=== PATIENT | female | born 1995 | race Caucasian/White ===

== ENCOUNTER 2021-05-05 20:51 | Emergency (ER) | payer BC ==
[2021-05-05 21:06] VITALS: BMI 33.1
[2021-05-06 01:50] LABS: BASO % 0.7 % (0-2.0); EOS % 2.4 % (0-4.5); HEMATOCRIT 36.1 % (32.4-45.2); HEMOGLOBIN 11.9 GM/dL (10.7-15.3); MCH 26.4 pg (25.7-33.7); MCHC 32.9 g/dl (32.0-36.0); MEAN CELL VOLUME 80.2 fl (80-96); MEAN PLT VOLUME 7.1 fl (7.5-11.1); MONO % 9.2 % (3.8-10.2); NEUT % 57.7 % (42.8-82.8); PLATELET COUNT 399 10^3/uL (134-434); RBC 4.51 M/mm3 (3.60-5.2); RDW 14.9 % (11.6-15.6)
[2021-05-06 02:11] LABS: ALBUMIN 4.2 g/dl (3.4-5.0); BLOOD UREA NITROGEN 11.9 mg/dL (7-18); CALCIUM 9.5 mg/dL (8.5-10.1)
[2021-05-06 02:16] LABS: BILIRUBIN,TOTAL 0.2 mg/dL (0.2-1); CREATININE 0.6 mg/dL (0.55-1.3)
[2021-05-06 03:04] VITALS: BP 102/53; PULSE 62; TEMP 98.2
== END 2021-05-06 04:17 | disposition home or self-care (01) ==
LOC: JER 20:51
DX: R07.89 Other chest pain (principal)
CPT/HCPCS: 36415; 80053; 82550; 84484; 85025; 93005; 93010; 99285-25